=== PATIENT | male | born 1960 | race African-American/Black ===

== ENCOUNTER 2018-07-08 19:11 | Emergency (ER) | payer OTHER ==
[~2018-07-08] VITALS: Ht 175.3 cm; Wt 98.0 kg
[2018-07-08 19:32] VITALS: BP 156/105
--- NOTE | 2018-07-08 19:35 | NUR ---
ED Nurse Note: Pt [place] car [place] [address] Pt neck, lower back,R arm and shoulder and leg painful, pain level 8/10. no physical injury reported. no active bleeding. pt is able to ambulate. pt is alert and oriented times 4. pt is able to move all extremities.
[2018-07-08] MEDS ORDERED: Methocarbamol 500mg tab ORAL ONE (19:45)
[2018-07-08] MEDS ORDERED: Acetaminophen 500mg (ES) tab ORAL ONE (19:45)
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
[2018-07-08] MEDS ORDERED: TYLENOL EXTRA500 MG ORAL (20:49)
[2018-07-08] MEDS ORDERED: LIDOCAINE700 M1 TP (20:49)
[2018-07-08] MEDS ORDERED: ROBAXIN500 MG PO (20:49)
[2018-07-08 20:55] VITALS: BP 150/98
[2018-07-08 20:56] VITALS: BP 150/98
--- NOTE | 2018-07-08 20:57 | NUR ---
ED Nurse Note: Pt cleared by Health Care Provider for discharge. DC instructions/prescriptions given and explained to pt and verbalized understanding of teachings. All medical devices such as ID band removed. Pt AAO x4, ambulatory and left with all personal belongings. pt is instructed to follow up with primary MD as soon as possible. pt is insturcted to return and seek medical attention if reoccurance of symptoms. pt has left with all DC notes and has been able to teach back all instructions.
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
== END 2018-07-08 20:57 | disposition home or self-care (01) ==
LOC: EMR 19:39
DX: M54.10 Radiculopathy, site unspecified (principal); M54.2 Cervicalgia; M54.5 Low back pain; I12.9 Hypertensive chronic kidney disease with stage 1 through stage 4 chronic kidney disease, or unspecified chronic kidney disease; N18.9 Chronic kidney disease, unspecified; F17.200 Nicotine dependence, unspecified, uncomplicated; V43.62XA Car passenger injured in collision with other type car in traffic accident, initial encounter; Y92.411 Interstate highway as the place of occurrence of the external cause
CPT/HCPCS: 72020; 72040; 99283